=== PATIENT | male | born 1970 ===

== ENCOUNTER 2017-07-20 17:24 | Emergency (ER) | payer OTHER ==
[2017-07-20 18:10] VITALS: BP 158/103; PULSE 89; RESP 18; TEMP 98.5; O2SAT 100
== END 2017-07-20 18:39 | disposition home or self-care (01) | DRG 914 ==
LOC: ED 17:24
DX: S09.90XA Unspecified injury of head, initial encounter (principal); R51 Headache; Y04.8XXA Assault by other bodily force, initial encounter
CPT/HCPCS: 70450; 99282

== ENCOUNTER 2017-09-19 14:36 | Inpatient (IN) | payer OTHER ==
[2017-09-19 16:52] LABS: HEMATOCRIT 34 % (39-53); MEAN CORPUSCULAR HGB CONC 36.7 gm/dl (32.0-36.0); MEAN CORPUSCULAR VOLUME 86 fL (80-100)
[2017-09-19 17:01] LABS: ALBUMIN 2.6 gm/dl (3.4-5.0); POTASSIUM 3.8 mMol/L (3.5-5.1)
[2017-09-19 17:04] LABS: LYMPHOCYTES % (MANUAL) 9 % (10-50)
[2017-09-19 17:05] LABS: ANISOCYTOSIS SLIGHT AMT; BASOPHILS % (MANUAL) 0 % (0-3); EOSINOPHILS % (MANUAL) 0 % (0-9)
[2017-09-19] MEDS ORDERED: CEFAZOLIN SODIUM 1 GM PDS ONE (18:57)
[2017-09-19] MEDS: NOVOLOG FLEXPEN SC SCH ×2 (19:09→21:51)
[2017-09-19] MEDS: CEFAZOLIN (PREMIX) 1 GM 1 GM/50 ML SOL IV SCH (19:16)
[2017-09-19] MEDS: SODIUM CHLORIDE 0.9% FLUSH 10 ML SOL IV SCH (19:21)
[2017-09-19] MEDS ORDERED: POTASSIUM CHLORIDE 2 MEQ/ML SOL IV ONE (19:39)
[2017-09-19] MEDS: SODIUM CHLORIDE 0.45% 1000 ML 1,000 ML with POTASSIUM CHLORIDE 2 MEQ/ML 20 MEQ IV SCH (19:42)
[2017-09-19] MEDS: IBUPROFEN 400 MG TAB PO PRN (19:42)
[2017-09-19] MEDS: INSULIN GLARGINE, RECOMBINAN 100 U/ML SOL SC SCH (21:51)
[2017-09-20] MEDS ORDERED: CEFAZOLIN SODIUM 1 GM PDS ONE ×4 (00:03→17:53)
[2017-09-20] MEDS: CEFAZOLIN (PREMIX) 1 GM 1 GM/50 ML SOL IV SCH ×4 (00:06→18:07)
[2017-09-20] MEDS ORDERED: POTASSIUM CHLORIDE 2 MEQ/ML SOL IV ONE ×2 (06:27→20:41)
[2017-09-20] MEDS: SODIUM CHLORIDE 0.9% FLUSH 10 ML SOL IV SCH ×3 (06:31→19:20)
[2017-09-20] MEDS: SODIUM CHLORIDE 0.45% 1000 ML 1,000 ML with POTASSIUM CHLORIDE 2 MEQ/ML 20 MEQ IV SCH ×3 (06:31→20:44)
[2017-09-20 07:11] LABS: CALCIUM 8.2 mg/dl (8.5-10.1); POTASSIUM 3.8 mMol/L (3.5-5.1)
[2017-09-20] MEDS: IBUPROFEN 400 MG TAB PO PRN ×2 (07:56→14:23)
[2017-09-20 07:58] LABS: BASOPHILS % (AUTO) 1 % (0-3); EOSINOPHILS % (AUTO) 1 % (0-9); HEMATOCRIT 30 % (39-53); MEAN CORPUSCULAR HGB CONC 39.5 gm/dl (32.0-36.0); MEAN CORPUSCULAR VOLUME 86 fL (80-100); MONOCYTES % (AUTO) 7.4 % (0-12); NEUTROPHILS % (AUTO) 86.7 % (37-80)
[2017-09-20] MEDS: NOVOLOG FLEXPEN SC SCH ×4 (09:56→21:51)
[2017-09-20] MEDS: ENOXAPARIN 40 MG SOL SC SCH (09:56)
[2017-09-20] MEDS: METFORMIN HYDROCHLORIDE 500 MG TAB PO SCH ×2 (10:16→18:06)
[2017-09-20] MEDS ORDERED: SODIUM CHLORIDE 0.9% 50 ML 50 ML IV ONE (12:17)
[2017-09-20 15:19] LABS: HEMOGLOBIN A1C 8.8 % (4.8-6.0)
[2017-09-20] MEDS: ACETAMINOPHEN 325 MG PO PRN (21:50)
[2017-09-20] MEDS: TRAMADOL HYDROCHLORIDE 50 MG TAB PO PRN (21:50)
[2017-09-20] MEDS: INSULIN GLARGINE, RECOMBINAN 100 U/ML SOL SC SCH (21:50)
[2017-09-21] MEDS: CEFAZOLIN SODIUM 1 GM PDS IV SCH ×2 (00:26→06:20)
[2017-09-21] MEDS: SODIUM CHLORIDE 0.9% FLUSH 10 ML SOL IV SCH ×5 (02:40→19:20)
[2017-09-21] MEDS: TRAMADOL HYDROCHLORIDE 50 MG TAB PO PRN ×3 (06:20→19:44)
[2017-09-21 07:33] LABS: BASOPHILS % (AUTO) 1 % (0-3); EOSINOPHILS % (AUTO) 1 % (0-9); HEMATOCRIT 29 % (39-53); MEAN CORPUSCULAR HGB CONC 37.7 gm/dl (32.0-36.0); MEAN CORPUSCULAR VOLUME 87 fL (80-100); MONOCYTES % (AUTO) 7.7 % (0-12); NEUTROPHILS % (AUTO) 85.2 % (37-80)
[2017-09-21 07:34] LABS: CALCIUM 7.9 mg/dl (8.5-10.1); POTASSIUM 4.1 mMol/L (3.5-5.1)
[2017-09-21] MEDS: NOVOLOG FLEXPEN SC SCH ×4 (08:00→21:57)
[2017-09-21 08:08] LABS: ANISOCYTOSIS SLIGHT AMT
[2017-09-21] MEDS ORDERED: PIPERACILLIN/TAZOBACT 3.375 GM 3.375 GM in SODIUM CHLORIDE 0.9% 100 ML 100 ML IV ONE (08:59)
[2017-09-21] MEDS: ACETAMINOPHEN 325 MG PO PRN ×2 (09:05→16:05)
[2017-09-21] MEDS: SODIUM CHLORIDE 0.45% 1000 ML 1,000 ML with POTASSIUM CHLORIDE 2 MEQ/ML 20 MEQ IV SCH (09:10)
[2017-09-21] MEDS ORDERED: SODIUM CHLORIDE 0.9% 100 ML 100 ML IV ONE ×3 (09:17→21:31)
[2017-09-21] MEDS ORDERED: PIPERACILLIN/TAZOBACT 3.375 GM PDS IV ONE ×3 (09:17→21:30)
[2017-09-21] MEDS: ENOXAPARIN 40 MG SOL SC SCH (09:29)
[2017-09-21] MEDS: METFORMIN HYDROCHLORIDE 500 MG TAB PO SCH ×2 (09:30→19:23)
[2017-09-21] MEDS: METOPROLOL TARTRATE 5 MG/5 ML SOL IV PRN ×2 (10:30→16:48)
[2017-09-21] MEDS: PIPERACILLIN/TAZOBACT 3.375 GM 3.375 GM in SODIUM CHLORIDE 0.9% 100 ML 100 ML IV SCH ×2 (15:28→21:43)
[2017-09-21] MEDS: SODIUM CHLORIDE 0.9% 1000ML 1,000 ML IV SCH (16:47)
[2017-09-21] MEDS: IBUPROFEN 400 MG TAB PO PRN (17:19)
[2017-09-21] MEDS ORDERED: INSULIN GLARGINE, RECOMBINAN 100 U/ML SOL SC SCH (21:00)
[2017-09-22 01:22] VITALS: RESP 14
[2017-09-22] MEDS: SODIUM CHLORIDE 0.9% 1000ML 1,000 ML IV SCH (03:22)
[2017-09-22] MEDS: ACETAMINOPHEN 325 MG PO PRN ×2 (03:24→13:53)
[2017-09-22] MEDS ORDERED: SODIUM CHLORIDE 0.9% 100 ML 100 ML IV ONE ×2 (06:08→11:51)
[2017-09-22] MEDS ORDERED: PIPERACILLIN/TAZOBACT 3.375 GM PDS IV ONE ×2 (06:08→11:51)
[2017-09-22] MEDS: PIPERACILLIN/TAZOBACT 3.375 GM 3.375 GM in SODIUM CHLORIDE 0.9% 100 ML 100 ML IV SCH ×2 (06:21→12:21)
[2017-09-22 08:04] LABS: BASOPHILS % (AUTO) 1 % (0-3); EOSINOPHILS % (AUTO) 2 % (0-9); HEMATOCRIT 30 % (39-53); MEAN CORPUSCULAR HGB CONC 36.9 gm/dl (32.0-36.0); MEAN CORPUSCULAR VOLUME 87 fL (80-100); MONOCYTES % (AUTO) 8.1 % (0-12); NEUTROPHILS % (AUTO) 83.9 % (37-80)
[2017-09-22 08:08] LABS: CALCIUM 8.1 mg/dl (8.5-10.1); POTASSIUM 4.2 mMol/L (3.5-5.1)
[2017-09-22] MEDS: SODIUM CHLORIDE 0.9% FLUSH 10 ML SOL IV SCH ×2 (08:38→13:17)
[2017-09-22] MEDS ORDERED: SODIUM CHLORIDE 0.9% 1000ML 1,000 ML IV SCH (08:39)
[2017-09-22] MEDS: NOVOLOG FLEXPEN SC SCH ×2 (08:39→11:48)
[2017-09-22 08:44] VITALS: BP 150/80; PULSE 84; TEMP 98.1; O2SAT 97
[2017-09-22] MEDS: ENOXAPARIN 40 MG SOL SC SCH (09:14)
[2017-09-22] MEDS: METFORMIN HYDROCHLORIDE 500 MG TAB PO SCH (09:15)
[2017-09-22] MEDS ORDERED: BENZOCAINE MT PRN (11:35)
[2017-09-22] MEDS: TRAMADOL HYDROCHLORIDE 50 MG TAB PO PRN (12:22)
[2017-09-22] MEDS ORDERED: VANCOMYCIN HCL 500 MG PDS 1,500 MG in SODIUM CHLORIDE 0.9% 500 ML 500 ML IV SCH (14:45)
[2017-09-22] MEDS ORDERED: VANCOMYCIN HYDROCHLORIDE 500 MG PDS IV ONE ×2 (15:04→15:10)
[2017-09-22] MEDS ORDERED: SODIUM CHLORIDE 0.9% 500 ML 500 ML IV ONE ×2 (15:04→15:12)
== END 2017-09-22 15:17 | disposition short-term general hospital (02) | DRG 603 ==
LOC: ACUTE CARE 16:07
PROVIDERS: ADMIT Family Medicine; ATTEND Family Medicine
DX: L03.116 Cellulitis of left lower limb (principal); E11.40 Type 2 diabetes mellitus with diabetic neuropathy, unspecified; E11.621 Type 2 diabetes mellitus with foot ulcer; L97.522 Non-pressure chronic ulcer of other part of left foot with fat layer exposed; Z79.4 Long term (current) use of insulin; Z79.84 Long term (current) use of oral hypoglycemic drugs; N28.9 Disorder of kidney and ureter, unspecified; R10.10 Upper abdominal pain, unspecified; R11.2 Nausea with vomiting, unspecified; R51 Headache; K08.89 Other specified disorders of teeth and supporting structures; E11.65 Type 2 diabetes mellitus with hyperglycemia; B95.1 Streptococcus, group B, as the cause of diseases classified elsewhere; R23.1 Pallor; I10 Essential (primary) hypertension
CPT/HCPCS: 36415; 73718; 80048; 80053; 82962; 83036; 85007; 85025; 85027; 87040; 99070; 99214; 99231; 99238; J0690; J1650; J1817; J2543; J3370; J3480; A6232; A6446; A9270-GY; A9585; J1815; J3490

== ENCOUNTER 2017-10-17 17:17 | Emergency (ER) | payer OTHER ==
[2017-10-17 17:45] LABS: BASOPHILS % (AUTO) 1 % (0-3); EOSINOPHILS % (AUTO) 3 % (0-9); HEMATOCRIT 29 % (39-53); MEAN CORPUSCULAR HGB CONC 36.3 gm/dl (32.0-36.0); MEAN CORPUSCULAR VOLUME 87 fL (80-100); MONOCYTES % (AUTO) 7.6 % (0-12)
[2017-10-17 18:54] VITALS: BP 148/83; PULSE 89; RESP 20; TEMP 98.7; O2SAT 99
== END 2017-10-17 18:13 | disposition home or self-care (01) | DRG 556 ==
LOC: EDSTATUS 17:17 → ED 17:17
DX: M79.672 Pain in left foot (principal); E11.9 Type 2 diabetes mellitus without complications; Z79.4 Long term (current) use of insulin; L53.9 Erythematous condition, unspecified; M79.89 Other specified soft tissue disorders
CPT/HCPCS: 73630; 85025; 99283

== ENCOUNTER 2018-07-30 21:57 | Emergency (ER) | payer OTHER ==
[2018-07-30 22:57] LABS: CALCIUM 8.2 mg/dl (8.5-10.1); CARBON DIOXIDE 26.2 mEq/L (21-32); CREATININE 1.6 mg/dl (0.80-1.30); POTASSIUM 3.9 mMol/L (3.5-5.1)
[2018-07-30] MEDS ORDERED: SODIUM CHLORIDE 0.9% 1000ML 1,000 ML IV SCH (23:00)
[2018-07-30 23:14] VITALS: RESP 18; TEMP 97; O2SAT 99
[2018-07-30] MEDS ORDERED: APAP/HYDROCODONE 1 EACH TABLET PO ONE (23:46)
[2018-07-30] MEDS ORDERED: APAP/HYDROCODONE 1 EACH TABLET ONE (23:55)
[2018-07-31 00:08] VITALS: BP 152/95; PULSE 89
== END 2018-07-31 00:04 | disposition home or self-care (01) | DRG 999 ==
LOC: ED 21:57
DX: V89.2XXA Person injured in unspecified motor-vehicle accident, traffic, initial encounter (principal); Y93.9 Activity, unspecified; Y92.410 Unspecified street and highway as the place of occurrence of the external cause; Y99.9 Unspecified external cause status
CPT/HCPCS: 74177; 80048; 96365; 99283; 99284; Q9967; A9270-GY

== ENCOUNTER 2019-01-16 16:38 | Observation (INO) | payer OTHER ==
[2019-01-16 17:41] LABS: APPEARANCE,URINE Clear; BILIRUBIN,URINE NEGATIVE (NEGATIVE); COLOR,URINE Yellow; GLUCOSE, URINE (UA) TRACE (NEGATIVE); KETONES,URINE NEGATIVE (NEGATIVE); LEUKOCYTE ESTERASE ,URINE NEGATIVE (NEGATIVE); NITRATE,URINE NEGATIVE (NEGATIVE); OCCULT BLOOD,URINE 2+ (NEG-TRACE); PH,URINE 5.5; UROBILINOGEN,URINE 0.2 (0.2-1.0 EU)
[2019-01-16 17:46] LABS: BASOPHILS % (AUTO) 0 % (0-3); EOSINOPHILS % (AUTO) 2 % (0-9); HEMATOCRIT 33 % (39-53); HEMOGLOBIN 11.8 gm/dl (13.5-17.7); LYMPHOCYTES % (AUTO) 9.1 % (10-50); MEAN CORPUSCULAR HEMOGLOBIN 31.9 pg (27.0-32.0); MEAN CORPUSCULAR HGB CONC 35.5 gm/dl (32.0-36.0); MEAN CORPUSCULAR VOLUME 90 fL (80-100); MONOCYTES % (AUTO) 5.3 % (0-12); NEUTROPHILS % (AUTO) 83.6 % (37-80)
[2019-01-16 18:00] LABS: RBC,URINE 0-2 (0-3AV/HPF)
[2019-01-16 18:01] LABS: BACTERIA 1+ (< 1+); CRYSTALS NEGATIVE (0-3 AVE/HPF)
[2019-01-16 18:04] LABS: BILIRUBIN,TOTAL 0.3 mg/dl (0.2-1.0); CALCIUM 8.6 mg/dl (8.5-10.1); CARBON DIOXIDE 27.4 mEq/L (21-32); CREATININE 1.98 mg/dl (0.80-1.30); POTASSIUM 4.5 mMol/L (3.5-5.1)
[2019-01-16] MEDS ORDERED: ALUMINUM/MAGNESIUM 30 ML SUS PO ONE (18:18)
[2019-01-16] MEDS ORDERED: PANTOPRAZOLE SODIUM 40 MG/10 ML PDS IV ONE (18:18)
[2019-01-16] MEDS ORDERED: LIDOCAINE HCL 2% (VISCOUS) 15 ML SOL MT ONE (18:18)
[2019-01-16] MEDS ORDERED: SODIUM CHLORIDE 0.9% 1000ML 1,000 ML IV ONE (18:54)
[2019-01-16] MEDS ORDERED: PANTOPRAZOLE SODIUM 40 MG/10 ML PDS ONE (19:18)
[2019-01-16] MEDS ORDERED: LIDOCAINE HCL 2% (VISCOUS) 15 ML SOL ONE (19:18)
[2019-01-16] MEDS ORDERED: ALUMINUM/MAGNESIUM 30 ML SUS ONE (19:18)
[2019-01-16 21:47] VITALS: RESP 16
[2019-01-16] MEDS: SODIUM CHLORIDE 0.9% FLUSH 10 ML SOL IV SCH (23:33)
[2019-01-17] MEDS: SODIUM CHLORIDE 0.9% 1000ML 1,000 ML IV SCH ×2 (00:06→07:45)
[2019-01-17 07:23] LABS: CALCIUM 7.9 mg/dl (8.5-10.1); CARBON DIOXIDE 22.3 mEq/L (21-32); CREATININE 1.75 mg/dl (0.80-1.30); POTASSIUM 4.3 mMol/L (3.5-5.1)
[2019-01-17] MEDS: SODIUM CHLORIDE 0.9% FLUSH 10 ML SOL IV SCH (07:46)
[2019-01-17 08:04] LABS: BASOPHILS % (AUTO) 1 % (0-3); EOSINOPHILS % (AUTO) 2 % (0-9); HEMATOCRIT 28 % (39-53); HEMOGLOBIN 9.8 gm/dl (13.5-17.7); LYMPHOCYTES % (AUTO) 16.4 % (10-50); MEAN CORPUSCULAR HEMOGLOBIN 31.9 pg (27.0-32.0); MEAN CORPUSCULAR HGB CONC 35.1 gm/dl (32.0-36.0); MEAN CORPUSCULAR VOLUME 91 fL (80-100); MONOCYTES % (AUTO) 5.9 % (0-12); NEUTROPHILS % (AUTO) 74.8 % (37-80)
[2019-01-17] MEDS ORDERED: PANTOPRAZOLE SODIUM 40 MG/10 ML PDS IV SCH (09:00)
[2019-01-17] MEDS ORDERED: MULTIVITAMIN2 1 EA TAB PO SCH (09:00)
[2019-01-17] MEDS ORDERED: LISINOPRIL 20 MG TAB PO SCH (09:00)
[2019-01-17] MEDS ORDERED: HYDROCHLOROTHIAZIDE 25 MG TAB PO SCH (09:00)
[2019-01-17] MEDS: HUMALOG PEN 100 U/ML SC SCH ×2 (09:14→12:12)
[2019-01-17 12:12] VITALS: BP 102/66; PULSE 86; TEMP 98; O2SAT 96
[2019-01-17] MEDS ORDERED: INSULIN GLARGINE, RECOMBINAN 100 U/ML SOL SC SCH (21:00)
== END 2019-01-17 14:10 | disposition home or self-care (01) | DRG 378 ==
LOC: ED 16:38 → ACUTE CARE 21:24
PROVIDERS: ADMIT Family Medicine; ATTEND Family Medicine
DX: K92.2 Gastrointestinal hemorrhage, unspecified (principal); N17.9 Acute kidney failure, unspecified; E11.9 Type 2 diabetes mellitus without complications; Z79.4 Long term (current) use of insulin
CPT/HCPCS: 36415; 74177; 80048; 80053; 81001; 82150; 82962; 85025; 93005; 96365; 96374; 99217; 99219; 99283; 99284; J1815; J1817; Q9967; A9270-GY

== ENCOUNTER 2019-02-04 09:57 | Day surgery (SDC) | payer OTHER ==
[~2019-02-04 09:57] MED LIST: LIDOCAINE HCL 1% MPF 30 SOL ONE; PROPOFOL 500 MG/50 ML EMU IV ONE
[2019-02-04] MEDS ORDERED: PROPOFOL 10 MG/ML 200 MG/20 ML EMU IV ONE (11:14)
[2019-02-04 11:43] VITALS: RESP 14
[2019-02-04 12:24] VITALS: BP 122/76; PULSE 76; TEMP 98; O2SAT 99
== END 2019-02-04 12:40 | disposition home or self-care (01) | DRG 379 ==
LOC: SURG 09:57
PROVIDERS: ATTEND Surgery
DX: K92.1 Melena (principal); L53.9 Erythematous condition, unspecified; K26.9 Duodenal ulcer, unspecified as acute or chronic, without hemorrhage or perforation; K62.5 Hemorrhage of anus and rectum; A63.0 Anogenital (venereal) warts; E11.9 Type 2 diabetes mellitus without complications
CPT/HCPCS: 82962; J2001; J2704

== ENCOUNTER → 2019-04-01 | Day surgery (SDC) | payer OTHER ==
[~2019-04-01] MED LIST changes: +BUPIVACAINE LIPOSOME 20 ML SUS ONE; +BUPIVACAINE/EPI 0.5% 10 ML SOL INFIL ONE; +FENTANYL 100MCG/2ML SOL ONE; -LIDOCAINE HCL 1% MPF 30 SOL ONE; +PROPOFOL 10 MG/ML 200 MG/20 ML EMU IV ONE; -PROPOFOL 500 MG/50 ML EMU IV ONE; +ROCURONIUM BROMIDE 10 MG/ML SOL IV ONE; +SUCCINYLCHOLINE CHLORIDE 20 MG/ML SOL IV ONE
[2019-04-01 15:38] VITALS: BP 138/93; PULSE 77; RESP 20; TEMP 97.6; O2SAT 95
== END | disposition home or self-care (01) | DRG 607 ==
LOC: SURG 13:24
PROVIDERS: ATTEND Surgery
DX: A63.0 Anogenital (venereal) warts (principal); E11.9 Type 2 diabetes mellitus without complications
CPT/HCPCS: 82962; 99001; J0330; J3010; A6402; J2704; J3490